=== PATIENT | female | born 1995 | race Caucasian/White ===

== ENCOUNTER 2021-05-27 20:21 | Emergency (ER) | payer MEDICAID, SELFPAY ==
--- NOTE | 2021-05-27 20:55 | ECG_ITS ---
APPROVED REPORT Exam: Resting ECG HR:93 bpm ECG Measurements Heart Rate 93 AXES WA 178 P 49 QRSd 148 QRS 104 QT 388 T 46 QTc 482 Conclusion Sinus rhythm with fusion complexes Right bundle branch block Abnormal ECG Electronically signed by : Frank Simmons MD 05/28/2021 07:30:52
[2021-05-27 21:13] VITALS: BP 132/73; PULSE 86; RESP 18; O2SAT 97; BMI 27.6
[2021-05-27 21:30] VITALS: BP 128/82; PULSE 83; O2SAT 97
[2021-05-27 21:33] LABS: Basophils % 0.1 % (0.1-2.0); Eosinophils # 0.2 K/mm3 (0.0-0.4); Eosinophils % 1.7 % (0.1-12.0); Hemoglobin 13.4 g/dL (12.2-16.2); Lymphocytes # 1.4 K/mm3 (0.7-4.5); Lymphocytes % 11.5 % (10-50); Mean Corpuscular HGB Conc 34.3 g/dL (31.8-35.4); Mean Corpuscular Hemoglobin 31.9 pg (27.0-31.2); Mean Platelet Volume 7.6 fl (7.4-10.4); Monocytes # 0.6 K/mm3 (0.1-1.0); Neutrophils # 9.8 K/mm3 (1.8-7.8); Neutrophils % 81.6 % (37.0-80.0); Platelet Count 245 K/mm3 (142-424); Red Blood Count 4.19 M/mm3 (4.20-5.40); Red Cell Distribution Width 13.5 % (11.5-17.5)
[2021-05-27 21:36] LABS: Chloride 108 mmol/L (98-107); Potassium 3.5 mmoL/L (3.5-5.1); Sodium 137 mmol/L (136-145)
[2021-05-27 21:39] LABS: Anion Gap 13.5 mEq/L (5-15); Blood Urea Nitrogen 5 mg/dl (7-17); Carbon Dioxide 19 mmol/L (22.0-30.0); Creatinine Clearance Estimated 234 mL/min (50-200); Estimated Glomerular Filt Rate 153 ml/min (>60); GFR (African American) 185 ML/MIN (>60)
[2021-05-27 21:40] LABS: Calcium 9.1 mg/dl (8.4-10.2); Glucose 116 mg/dl (74-100)
[2021-05-27 22:00] VITALS: BP 120/78; PULSE 86; O2SAT 97
[2021-05-27 22:30] VITALS: BP 112/68; PULSE 84; O2SAT 98
[2021-05-27 23:00] VITALS: BP 118/70; PULSE 83; O2SAT 96
--- NOTE | 2021-05-27 23:21 | HMH.EDGENADL ---
ED Disposition Clinical Impression: Atypical chest pain Disposition: Home, Self-Care Condition on Discharge: Good Instructions: DI for Atypical Chest Pain Additional Instructions: Additional instructions for CHEST PAIN: Call your lead mason tender and reschedule appointment to be seen as soon as possible. Return immediately if worsening chest pain, vomiting, shortness of breath, fever, coughing of blood. Referrals: Provider,Referral, [Primary Care Provider] - - Critical Care Critical Care Time: No Attestation: On 05/27/21, the high probability of a clinically significant, sudden or life threatening deterioration of the following system(s) required my full and direct attention, intervention and personal management. The time I documented below is in addition to time spent performing reported procedures but includes the following listed in this critical care notation. Medical Decision Making - Ean Inquiry Pt receiving controlled substance: No Vital Signs: 05/27/21 21:13 05/27/21 21:30 05/27/21 22:00 Temperature Temperature Source Pulse Rate 83 86 Pulse Rate [Right Brachial] 86 Respiratory Rate 18 Blood Pressure 128/82 120/78 Blood Pressure [Right Arm] 132/73 Blood Pressure Mean [Right Arm] 92 Blood Pressure Source [Right Arm] Automatic Cuff Blood Pressure Position [Right Arm] Sitting 02 Sat by Pulse Oximetry 97 97 97 Oxygen Delivery Method Room Air Room Air 05/27/21 22:30 05/27/21 23:00 05/28/21 00:45 Temperature 98.0 F Temperature Source Oral Pulse Rate 84 83 89 Pulse Rate [Right Brachial] Respiratory Rate 19 Blood Pressure 112/68 118/70 117/74 Blood Pressure [Right Arm] Blood Pressure Mean [Right Arm] Blood Pressure Source [Right Arm] Blood Pressure Position [Right Arm] 02 Sat by Pulse Oximetry 98 96 Oxygen Delivery Method Room Air Room Air - Lab Data Lab Results 05/27/21 21:05: WBC 12.0 H, RBC 4.19 L, Hgb 13.4, Hct 39.0, MCV 93.0, MCH 31.9 H, MCHC 34.3, RDW 13.5, Plt Count 245, MPV 7.6, Neut % (Auto) 81.6 H, Lymph % (Auto) 11.5, [place] % (Auto) 5.0, Eos % (Auto) 1.7, Baso % (Auto) 0.1, Neut # (Auto) 9.8 H, Lymph # (Auto) 1.4, [place] # (Auto) 0.6, Eos # (Auto) 0.2, Baso # (Auto) 0.0 05/27/21 21:05: Sodium 137, Potassium 3.5, Chloride 108 H, Carbon Dioxide 19 L, Anion Gap 13.5, BUN 5 L, Creatinine 0.50 L, Estimated Creat Clear 234, Estimated GFR 153, Est GFR ( Amer) 185, Glucose 116 H, Calcium 9.1 05/27/21 21:05: Troponin I < 0.01 Result diagrams: 05/27/21 21:05 05/27/21 21:05 - Radiology Data #1 Image(s): Chest Image Reviewed: Yes I have reviewed radiologist's interpretation PROCEDURE INFORMATION: Exam: XR Chest Exam date and time: 05/27/2021 11:36 PM Age: 25 years old Clinical indication: Pain; Chest pressure; Prior surgery; Surgery type: Open heart when PT was 15; Patient HX: ; Additional info: Chest pain TECHNIQUE: Imaging protocol: XR of the chest. Views: 2 views. COMPARISON: No relevant prior studies available. FINDINGS: Lungs: No focal consolidation. Pleural spaces: No pleural effusion. No pneumothorax. Heart/Mediastinum: Unremarkable cardiomediastinal silhouette. Bones/joints: Median sternotomy. IMPRESSION: No focal consolidation. - ECG Data Tracing #1 EKG interpreted by Meir Street MD: Rhythm: sinus Rate: 93 [place]: normal Ectopy: none Conduction: Right bundle branch block ST Segment Changes: none T Wave Changes: none Q Waves: none No evidence of acute ischemia or injury No prior EKGs available for comparison. - Reevaluation(s) Time: 00:43 Reevaluation #1: No distress, appears comfortable. Normal heart rate and pulse oximetry on room air. - ROLAN Score for Non-Stemi Age of Patient: <30 years old Heart Rate: 70-89 bpm Systolic Blood Pressure: 120-139 mmhg Serum Creatinine: 0.40-0.79 mg
--- NOTE | 2021-05-27 23:36 | XR_ITS ---
PROCEDURE INFORMATION: Exam: XR Chest Exam date and time: 05/27/2021 11:36 PM Age: 25 years old Clinical indication: Pain; Chest pressure; Prior surgery; Surgery type: Open heart when PT was 15; Patient HX: ; Additional info: Chest pain TECHNIQUE: Imaging protocol: XR of the chest. Views: 2 views. COMPARISON: No relevant prior studies available. FINDINGS: Lungs: No focal consolidation. Pleural spaces: No pleural effusion. No pneumothorax. Heart/Mediastinum: Unremarkable cardiomediastinal silhouette. Bones/joints: Median sternotomy. IMPRESSION: No focal consolidation.
[2021-05-28 00:09] LABS: Troponin I < 0.01 ng/ml (0.00-0.034)
[2021-05-28 00:45] VITALS: BP 117/74; PULSE 89; RESP 19; TEMP 36.7; O2SAT 98
== END 2021-05-28 00:52 | disposition home or self-care (01) ==
PROVIDERS: Emergency Provider Emergency Medicine
DX: R07.89 Other chest pain (principal); Z3A.19 19 weeks gestation of pregnancy
CPT/HCPCS: 71046; 80048; 84484; 85025; 93005; 99283

== ENCOUNTER → 2021-06-09 14:19 | Outpatient (CLI) | payer MEDICAID, SELFPAY ==
--- NOTE | 2021-06-09 14:20 | US_ITS ---
PROCEDURE: US OB >= 14 WEEKS FETUS CLINICAL INDICATION: OB Complete COMPARISON: No exams were available for comparison FINDINGS: There is a single live fetus in cephalic presentation. Cervix is closed at 4 cm. heart and body motion noted. Anterior grade 1 placenta without previa or abruption. Complete survey performed and was unremarkable on the submitted images as in PACS. No discrete anomalies identified on survey imaging by technologist. Active fetus. Three-vessel cord with satisfactory umbilical cord insertion. 4- chamber heart noted. Survey of brain & ventricles Unremarkable. Face and neck survey unremarkable. Diaphragm and chest views unremarkable. Abdomen: Both kidneys noted and unremarkable. Stomach noted and satisfactory. Spine: Survey of the spine satisfactory with no anomalies identified nor imaged. Both arms and legs noted. Amniotic Fluid: Adequate. Maternal adnexa: No significant findings. Measurements: Average ultrasound age 21weeks 1day. Gestational Age 21weeks 1day Estimated due date by ultrasound age 0210/19/2021. Estimated weight 394g BPD = 21weeks 3days OFD = 21weeks 2days HC = 20weeks 5days AC = 21weeks FL = 21weeks 2days Growth Percentile= 25% Heart Rate = 155bpm Cerebellum = 21weeks Humerus = 21weeks 4days HC/AC is 1.16 CI is 0.79 FL/BPD is 0.7 FL/AC is 0.22 IMPRESSION: Live IUP with an average ultrasound age of 21 weeks 1 day. No obvious anomalies. Please see above for detail Dictated by: Bennie Heredia MD 06/09/2021 16:18 Bennie Heredia MD in [place] 06/09/2021 16:18
== END ==
PROVIDERS: Visit Provider Obstetrics & Gynecology
DX: Z34.90 Encounter for supervision of normal pregnancy, unspecified, unspecified trimester (principal)
CPT/HCPCS: 76805

== ENCOUNTER 2022-01-05 19:58 | Emergency (ER) | payer MEDICAID, SELFPAY ==
[2022-01-05 20:05] VITALS: BP 121/80; PULSE 70; RESP 18; O2SAT 95; BMI 28.0
[2022-01-05 20:23] VITALS: BP 143/95; PULSE 85; RESP 22; TEMP 36.7; O2SAT 96; BMI 28.0
--- NOTE | 2022-01-05 20:39 | HMH.EDUTC ---
[facility] [place]ression: Painful [place] Disposition: Home, Self-Care Condition on Discharge: Good Instructions: DI for Groin Hernia Additional Instructions: Follow up with OBGYN that did your C Section and if heavy menstrual periods continued Return if needed Follow up with your Family Doctor if symptoms return or worsen Straight to ER if any life threatening symptoms Referrals: Provider,Referral, MD [Primary Care Provider] - As needed Forms: Work/School Release Time of Disposition: 20:53 Medical Decision Making - Ean Inquiry Pt receiving controlled substance: No Ean was queried for this patient: No Vital Signs: 01/05/22 20:05 01/05/22 20:23 Temperature 98.1 F Temperature Source Oral Pulse Rate [Right] 70 85 Respiratory Rate 18 22 Blood Pressure [Right Arm] 121/80 143/95 H Blood Pressure Mean [Right Arm] 93 111 02 Sat by Pulse Oximetry 95 96 [facility] [place] - General Stated complaint: c section javier feels like a bubble Time Seen by Provider: 01/05/22 20:39 Mode of Arrival: Ambulatory Source of Information: Patient Limitations: No Limitations Description of Symptoms (Recalled from Triage Doc. by RN): pt had a c/s in [place]. pt states she is having a severe pulsating pain at the R of her incision, RLQ abd pain. pt states it feels like its a bubble pulsating. pt states she is also having excessive vaginal bleeding with many clots. pt states this is not her normal menstrual cycle. HEENT Symptoms (Recalled from RN notes): No Resp Symptoms (Recalled from RN notes): No Skin Symptoms (Recalled from RN notes): No MS Symptoms (Recalled from RN notes): No Functional Status (Recalled from RN notes): wnl - History of Present Illness Provider Complaint: Patient states that she has felt a bubble like area beside her c section scar on her pubic area States that the bubble came out yesterday and hurt for a little while then went away States that she is on her period but this one is a little heavier and she thought she wouldnt have one where they removed her tubes States that this morning that bubble came back so she was unable to go to work but has since went away again and she is no longer having any pain but she wanted to have someone look at her scar to see if it may be trying to open or something - Related Data Home Medications Medication Instructions Recorded Confirmed No Known Home Medications 06/22/21 06/22/21 Allergies Allergy/AdvReac Type Severity Reaction Status Date / Time amoxicillin AdvReac Verified 05/27/21 21:19 clavulanic acid AdvReac Verified 05/27/21 21:19 [From Augmentin] - Worker's Comp Is this a Worker's Comp case?: No [facility] History - Hepatitis A Screen Drug use history?: No High risk sexual behaviors?: No History of sexually transmitted infection?: No Currently employed?: No Childcare worker?: No Do you have indoor plumbing?: Yes Do you have electricity?: Yes Attestation statement:: This patient has been screened for Hepatitis A risk factors. I have reviewed the patient's past medical history: Yes ROS Obtained: Yes All systems reviewed & no additional complaints, Yes Systems reviewed as appropriate & no additional complaints - Constitutional Constitutional: Reports system reviewed and no additional complaints, except as docu, Denies body ache, Denies chills, Denies fever(s) - ENT Ears, Nose, Mouth, and Throat: Reports system reviewed and no additional complaints, except as docu - Cardiovascular Cardiovascular: Reports system reviewed and no additional complaints, except as docu - Respiratory Respiratory: Reports system reviewed and no additional complaints, except as docu - Gastrointestinal Gastrointestingal: Reports: system reviewed and no additional complaints, except as docu, other. Denies: abdominal pain Comments: reports feels like there is a bubble at the end of her scar on her pubic area that is now gone Physical Exam
[2022-01-05 20:59] VITALS: BP 143/95; PULSE 85; RESP 22; TEMP 36.7
== END 2022-01-05 21:00 | disposition home or self-care (01) ==
PROVIDERS: Emergency Provider Nurse Practitioner
DX: R10.31 Right lower quadrant pain (principal); N92.0 Excessive and frequent menstruation with regular cycle; Z88.0 Allergy status to penicillin; Z88.1 Allergy status to other antibiotic agents; Z88.3 Allergy status to other anti-infective agents
CPT/HCPCS: 99212; G0463

== ENCOUNTER 2024-01-17 10:48 | Outpatient (CLI) | payer MEDICAID, SELFPAY | END 2024-01-17 23:59 | disposition home or self-care (01) | LOC: RT 10:50 | PROVIDERS: Visit Provider Physician Assistant | DX: R00.2 Palpitations (principal); R06.09 Other forms of dyspnea; Z98.890 Other specified postprocedural states; R94.31 Abnormal electrocardiogram [ECG] [EKG]; R07.89 Other chest pain; Z86.79 Personal history of other diseases of the circulatory system; Z87.891 Personal history of nicotine dependence; I45.10 Unspecified right bundle-branch block | CPT/HCPCS: 93270 ==

== ENCOUNTER 2024-02-03 07:49 | Outpatient (CLI) | payer MEDICAID, SELFPAY ==
--- NOTE | 2024-02-03 07:51 | CA_ITS ---
APPROVED REPORT EXAM: Comprehensive 2D, Doppler, and color-flow Echocardiogram Card Mounter: Khadijah Sams CRT Ht: 5 ft 9 in Wt: 169lbs BSA: 1.92 BP: 123/72 mmHg Indications: Abnormal ECG, Chest Pain, Shortness of Breath, Palpitations, pt had valve ? replaced at 11 porcine M-Mode Dimensions RVDd 2.63 cm (0.9-2.6) LA Diam 3.05 cm (1.9-4.0) LVDd 4.43 cm (3.5-5.7) LVDs 3.07 cm (3.5-5.7) IVSd 1.61 cm (0.6-1.1) PWd 0.78 cm (0.6-1.1) EF (Teich) 58.50% FS 30.70% EDV (Teich) 89.10 mL TAPSE 1.49 (<1.7) ESV (Teich) 37.00 mL LV Diastology MED A' 8.20 cm/s LAT A' 7.30 cm/s Aortic Valve EVANGELIST Index 1.28 cm2/m2 AoV Peak Job. 118.0 (50-130 cm/s) AO Peak GR. 5.60 mmHg AO Mean GR. 3.50 (<5 mmHg) AO VTI 24.5 (18-25 cm) EVANGELIST (VTI) 2.52 (2.5-4.5 cm2) Pulmonary Valve PV Peak Velocity 157.0 (50-150 cm/s) Tricuspid Valve TR P. Velocity 225.00 cm/s RAP Estimate 10.00 mmHg RVSP 30.20 mmHg Left Ventricle The left ventricle is normal size. The left ventricular systolic function is normal. The left ventricular ejection fraction is within the normal range. There is increased LV wall thickness. There is a septal flattening present, suggestive of RV pressure/volume overload. The left ventricular diastolic function is normal. LVEF is 55%. Right Ventricle The right ventricle is moderately dilated. Right ventricle is mildly to moderately hypokinetic. TAPSE 1.4 cm. TV S' 7 cm/s. Atria The left atrium size is normal. Right atrium is moderately dilated. There is no Doppler evidence of interatrial shunt. Aortic Valve The aortic valve opens well. There is no aortic valvular stenosis. No aortic regurgitation is present. Mitral Valve The mitral valve is normal in structure. No evidence of mitral valve stenosis. Mild mitral regurgitation. Tricuspid Valve The tricuspid valve leaflets are thin and pliable. Mild to moderate tricuspid regurgitation. RVSP is 20-25 mmHg. Pulmonic Valve The pulmonary valve is normal in structure. Mild pulmonic regurgitation. Great Vessels The aortic root is normal in size. The ascending aorta is not well-visualized. IVC is normal in size and collapses >50% with inspiration. Pericardium There is no pericardial effusion. Other Information Study Quality: Fair Conclusion Normal LV systolic function. Moderately dilated RV with mild to moderate reduction in RV function. Septal flattening present, suggestive of RV pressure/volume overload. RA dilation. Mild MR, mild PI. Mild to moderate TR. RVSP 20-25 mmHg. In the setting of RV dilation and RV dysfunction, further evaluation with limited JENNIFER plus bubble study to evaluate for interatrial shunt, as well as outpatient cardiac MRI ([facility] protocol), is recommended. Of note, also, the patient had reported bioprosthetic valve replacement/repair. This TTE does not clearly distinguish which valve. Electronically signed by : Marlin Beckman MD 02/06/2024 22:02:22
== END 2024-02-03 23:59 | disposition home or self-care (01) ==
LOC: RT 07:51
PROVIDERS: PCP Family Medicine Addiction Medicine; Visit Provider Physician Assistant
DX: I20.89 Other forms of angina pectoris (principal); Z95.2 Presence of prosthetic heart valve; Z98.890 Other specified postprocedural states; R94.31 Abnormal electrocardiogram [ECG] [EKG]
CPT/HCPCS: 93017; 93018; 93306

== ENCOUNTER 2024-03-21 09:56 | Outpatient (CLI) | payer MEDICAID, SELFPAY | END 2024-03-21 23:59 | disposition home or self-care (01) | LOC: RAD 09:57 | PROVIDERS: Visit Provider Physician Assistant | DX: R93.89 Abnormal findings on diagnostic imaging of other specified body structures (principal) ==

== ENCOUNTER 2024-05-16 08:16 | Day surgery (SDC) | payer MEDICAID, SELFPAY ==
[2024-05-16] VITALS (7 sets, daily range): BP systolic 107–137; BP diastolic 57–78; PULSE 59–77; RESP 12–18; TEMP 36.1–36.6; O2SAT 93–100; BMI 25.9
--- NOTE | 2024-05-16 08:18 | CA_ITS ---
APPROVED REPORT EXAM: Comprehensive 2D, Doppler, and color-flow Echocardiogram Tungsten Tender: RT Nicolle(R) Ht: 5 ft 9 in Wt: 178lbs BSA: 1.97 BP: 141/91 mmHg Indications: atypical CP, dilated RV, dyspnea, RBBB, hx of valve replacement per patient(unsure of which valve), ex smoker Procedure After obtaining informed consent, patient underwent transesophageal echo in the [facility]. Type of Sedation : MAC Sedation was administered by Jose LaraR.N.AWilver Sedation start time: 9:50 Case end Time: 10:15 Transesophageal probe was inserted and advanced into esophagus without difficulty by Dr. Serge Beckman. The JENNIFER was performed without complications. Throughout the procedure, the blood pressure, pulse oximetry, cardiac rhythm, and rate were monitored. The patient tolerated the procedure without adverse effects. Recovery from conscious sedation was uneventful and vital signs were stable. Left Ventricle The left ventricle is normal size. The left ventricular systolic function is normal. The left ventricular ejection fraction is within the normal range. There is normal left ventricular wall thickness. There is normal LV segmental wall motion. LVEF is 55%. Right Ventricle Right ventricle is mildly dilated. Right ventricle is mildly hypokinetic. Atria Left atrium is mildly dilated. Right atrium is mildly dilated. Small PFO is noted. Saline bubble contrast intravenous injection demonstrates migration of bubbles from the RA into the LA through the PFO. The PFO tunnel length is 0.7 cm, tunnel width is 0.3 cm. Qp:Qs ratio on JENNIFER is 1.3 (LVOT 1.8 cm, RVOT 2.3 cm, LVOT VTI 28 cm, RVOT VTI 22 cm). Aortic Valve The aortic valve is normal in structure. The aortic valve is trileaflet. There is no aortic valvular stenosis. No aortic regurgitation is present. Mitral Valve The mitral valve is normal in structure. No evidence of mitral valve stenosis. Mild mitral regurgitation. Tricuspid Valve The tricuspid valve leaflets are thin and pliable. Mild tricuspid regurgitation. RVSP is 18 mmHg + RA pressure. Pulmonic Valve The pulmonary valve is normal in structure. Trace pulmonic regurgitation. Great Vessels The aortic root is normal in size. The ascending aorta is normal in size. Pericardium There is no pericardial effusion. Other Information Study Quality: Fair Conclusion Normal LV systolic function. Mild RV dilation with mild reduction in RV function. Mild biatrial dilation. Small PFO is noted. Saline bubble contrast intravenous injection demonstrates migration of bubbles from the RA into the LA through the PFO. The PFO tunnel length is 0.7 cm, tunnel width is 0.3 cm. Qp:Qs ratio on JENNIFER is 1.3. Mild MR, mild TR. RVSP 18 mmHg + RA pressure. Of note, the patient is s/p valve repair during childhood (unknown valve). In this JENNIFER, the valves appeared normal overall normal in structure. Further evaluation of outside records for childhood valve surgery and cardiac function/structure is helpful to determine the need for PFO intervention. Further evaluation of QP QS ratio and RV dimensions on cardiac MRI (cardiomyopathy protocol, ASD/PFO protocol) is also recommended. Electronically signed by : Marlin Beckman MD 05/17/2024 12:08:03
--- NOTE | 2024-05-16 08:39 | ECG_ITS ---
APPROVED REPORT Exam: Resting ECG HR:70 bpm ECG Measurements Heart Rate [address] 209 P 50 QRSd 164 QRS 110 QT 422 T 66 QTc 442 Conclusion SINUS RHYTHM WITH SINUS ARRHYTHMIA RIGHT BUNDLE BRANCH BLOCK [120+ ms QRS DURATION, UPRIGHT V1, 40+ ms S IN I/aVL/V4/V5/V6] LEFT POSTERIOR FASCICULAR BLOCK [QRS AXIS > 109, INFERIOR Q] ABNORMAL ECG UNCONFIRMED REPORT Electronically signed by : Frank Simmons MD 05/18/2024 08:48:27
[2024-05-16 08:48] LABS: MANUAL DIFFERENTIAL MANUAL DIFFERENTIAL (MANUAL DIFF)
[2024-05-16 08:54] LABS: Basophils % 0.7 % (0.1-2.0); Eosinophils # 0.3 K/mm3 (0.0-0.4); Hematocrit 45.3 % (37.0-47.0); Hemoglobin 15.1 g/dL (12.2-16.2); Lymphocytes # 1.8 K/mm3 (0.7-4.5); Lymphocytes % 29.7 % (10-50); Mean Corpuscular HGB Conc 33.4 g/dL (31.8-35.4); Mean Corpuscular Hemoglobin 31.2 pg (27.0-31.2); Mean Corpuscular Volume 93.5 fl (81-99); Mean Platelet Volume 7.9 fl (7.4-10.4); Monocytes # 0.4 K/mm3 (0.1-1.0); Monocytes % 6.4 % (1.7-9.3); Neutrophils # 3.5 K/mm3 (1.8-7.8); Platelet Count 239 K/mm3 (142-424); Red Blood Count 4.85 M/mm3 (4.20-5.40); Red Cell Distribution Width 12.8 % (11.5-17.5)
--- NOTE | 2024-05-16 09:01 | P.PNANES_ITS ---
[facility] Disclaimer: The information contained in this section may have been updated after the patient was seen, as this information can be updated by other users. Medical History delivery delivered Surgical History History of open heart surgery Family History Mother Alcoholism Father Alcoholism Social History Smoking Status: Former smoker alcohol intake: current alcohol intake frequency: holidays/special occasions only substance use type: denies use current occupational status: previously employed Travel in the last 8 weeks: None caffeine: Yes [facility] Anesthesia Checklist Patient Identification Patient Identification: Arm Band and Verbal (Name & ) Structural Data Admitted From: Home Planned Operative Procedure/s: JENNIFER Consent for Planned Operative Procedure(s) Verified: Yes Verified Documents: Surgical Consent and History and Physical NPO Status Verified Time NPO: 00:00 Chart Verification Results Verified: CBC and BMP Additional verifications Anesthesia Reactions: No Airway Assessment Mallampati Score:: Class I C-Spine Mobility Assessed: Yes TMJ Mobility Assessed: Yes Dentition: Good Dentition Neurological Assessment Level of Consciousness: Awake Anesthesia Plan Anesthesia Risk discussed: Yes Anesthesia Plan: Verified ASA Class: II Anesthesia Type: MAC
[2024-05-16 09:03] LABS: Chloride 109 mmol/L (98-107); Sodium 137 mmol/L (136-145)
[2024-05-16] MEDS: LACTATED RINGERS 1000ML 1,000 ML 25 ML IV (09:03)
[2024-05-16 09:05] LABS: HCG Qualitative, Serum Negative (Negative)
[2024-05-16 09:06] LABS: Activated Partial Thrombo Time 29.3 seconds (22.8-30.6); Blood Urea Nitrogen 7 mg/dl (7-17); Creatinine Clearance Estimated 153 mL/min (50-200); Estimated Glomerular Filt Rate 101 ml/min (>60); GFR (African American) 122 ML/MIN (>60); INR 1.01 (0.9-1.1); Prothrombin Time 11.3 seconds (10.1-12.5)
[2024-05-16 09:07] LABS: Carbon Dioxide 23 mmol/L (22.0-30.0); Glucose 95 mg/dl (74-100)
[2024-05-16 09:35] LABS: Eosinophils % 4 % (0-3); Lymphocytes % 33 % (10-50); Monocytes % 4 % (2-9); Neutrophils % 58 % (42-76); Platelet Estimate Normal; RBC Morphology Normal; Total Cells Counted 100
== END 2024-05-16 10:40 | disposition home or self-care (01) ==
PROVIDERS: PCP Family Medicine Addiction Medicine; Visit Provider Internal Medicine
DX: R93.1 Abnormal findings on diagnostic imaging of heart and coronary circulation (principal); Z95.2 Presence of prosthetic heart valve; R00.2 Palpitations; Z87.891 Personal history of nicotine dependence; I45.10 Unspecified right bundle-branch block; R94.31 Abnormal electrocardiogram [ECG] [EKG]; R07.89 Other chest pain
CPT/HCPCS: 80048; 84703; 85007; 85014; 85018; 85048; 85049; 85610; 85730; 93005; 93270; 93312; 93319; J2250; J7120

== ENCOUNTER 2024-06-12 10:04 | Outpatient (CLI) | payer MEDICAID, SELFPAY ==
--- NOTE | 2024-06-12 10:10 | MR_ITS ---
APPROVED REPORT Stage Manager: CLINICAL INDICATION PFO, mild RV dysfunction on TTE, history of valve repair (unknown valve) TECHNIQUE Image Acquisition: Cardiac magnetic resonance (CMR) was performed on Siemens Espree MRI 1.5T scanner. Software platform sequences were performed using the Siemens NeurogesXo MR B19 platform. A set of three-plane, low-resolution, large [id number] localizers were initially acquired. Then axial, coronal, sagittal TrueFISP, as well as axial HASTE images, were obtained. These were followed by gated TrueFISP breathold cinematic sequences obtained in the short axis with 8 mm slices and 2 mm gaps, 2-chamber (vertical long axis), 3-chamber, 4-chamber (horizontal long axis). A bolus of contrast was injected intravenously with first-pass sequences obtained in the short axis and four-chamber planes. After approximately 10 minutes, a TI nail mill worker sequence was performed to determine the optimal TI time. Using the optimized TI time, delayed contrast enhancement segmented inversion???recovery TurboFLASH sequences were obtained in the short axis, 2-chamber, 3-chamber, and 4-chamber projections. 2D-velocity phase mapping was performed. Functional parameters were calculated by offline analysis on an independent workstation ([employer] Platform, [employer]). Contrast: ProHance??? (Gadoteridol) FINDINGS MORPHOLOGY AND FUNCTION Left ventricle: The left ventricle is normal in size. The indexed left ventricular end-diastolic volume (LVEDVi) is 79 ml/m2 (reference range 57-105 ml/m2 in males, 56-96 ml/m2 in females). Normal left ventricular systolic function is present. There is normal left ventricular wall thickness. There mild that although I appreciate the call d at 59.2% (reference range 57-77%). Right ventricle: The right ventricle is mildly dilated. The indexed right ventricular end-diastolic volume (RVEDVi) is 105 ml/m2 (reference range 61-121 ml/m2 in males, 48-102 ml/m2 in females). There is mild reduction in right ventricular systolic function. RVEF is calculated at 42.3% (reference range 52-72% in males, 51-71% in females). Atria: The left atrium is normal in size. The maximum indexed left atrial volume is 35 ml/m2 (reference range 26-52 ml/m2 in males, 27-53 ml/m2 in females). The right atrium is mildly dilated.. The maximum indexed right atrial volume is 47 ml/m2 (reference range 18-40 ml/m2). The interatrial septum bows to the left, suggestive of increased right atrial pressure. Aorta: The diameter of the aortic annulus is normal, measuring 20 mm (coronal view reference range 21-30 mm in males, 19-27 mm in females). The diameter of the aortic sinus is normal, measuring 27 mm (coronal view reference range 25-42 mm in males, 24-36 mm in females). The diameter of the sinotubular junction is normal, measuring 20 mm (coronal view reference range 18-32 mm in males, 18-28 mm in females). The diameters of the ascending and descending thoracic aorta are normal. Main pulmonary artery: The main pulmonary artery diameter is normal. Pericardium: The pericardial thickness is normal. The pericardial thickness measures 1.7 mm (normal < 4.0 mm). There is no pericardial effusion. VALVES The septal leaflet of the tricuspid valve appears tethered. There is mild tricuspid regurgitation present. Systolic anterior motion of the mitral valve is not visualized. Ratio of pulmonary to systemic flow, Qp:Qs ratio = 1.15 (normal < or = 1.2, hemodynamically significant shunt > 1.5), demonstrating no evidence of hemodynamically significant shunt. TISSUE CHARACTERIZATION Resting Perfusion: Normal myocardial blood flow at rest. No evidence of resting hypoperfusion. Myocardial Fibrosis and/or edema: Normal gadolinium kinetics are present. No evidence of late gadolinium enhancement is noted, consistent with absence of myocardial scarring, infarction, or necrosis. T2-weighted imaging demonstrates no evidence of myocardial edema or inflammation. OTHER No other significant findings are noted. However, this exam is focused on the cardiac structure and function. IMPRESSION Normal LV size with normal LV systolic function. LVEDVi= 79 ml/m2 and LVEF= 59.2%. Septal flattening is present, suggestive of right-sided volume/pressure overload. Mildly dilated RV with mild reduction in RV function. RVEDVi= 105 ml/m2 and RVEF= 42.3%. RA dilation. The septal leaflet of the tricuspid valve appears tethered (may be due to prior surgical intervention). There is mild tricuspid regurgitation present. No CMR evidence of myocardial scarring, infarction, or necrosis. No evidence of myocardial edema or inflammation. Perfusion analysis demonstrates normal blood flow at rest with no evidence of resting hypoperfusion. Ratio of pulmonary to systemic flow, Qp:Qs ratio = 1.15 demonstrating no evidence of hemodynamically significant shunt. This CMR demonstrates normal LV systolic function with mild RV dysfunction. The septal leaflet of the tricuspid valve appears tethered (may be due to prior surgical intervention) with associated mild TR. In the setting of known PFO, but also normal Qp/Qs ratio, evaluation for additional etiologies of RV dysfunction is suggested prior to proceeding with PFO closure. COMPARISON None CRITICAL RESULT None COMMUNICATION Per this written report The findings of this cardiac MR were reviewed, reported, and signed by Serge Beckman MD (Refinery Operator Crude Unit). Conclusion Electronically signed by : Marlin Beckman MD 07/02/2024 11:43:03
[2024-06-12] MEDS: GADOTERIDOL INJ 20ML SYRINGE 17 ML IV (11:55)
[2024-06-12] MEDS: 0.9 % SODIUM CHLORIDE 50 ML VIAL 25 ML IV (11:55)
[2024-06-12] MEDS: SODIUM CHLORIDE 0.9% 10ML SYR (RAD ONLY) 10 ML IV (11:55)
== END 2024-06-12 23:59 | disposition home or self-care (01) ==
LOC: RAD 10:05
PROVIDERS: Visit Provider Physician Assistant
DX: R93.1 Abnormal findings on diagnostic imaging of heart and coronary circulation (principal); Q21.12 Patent foramen ovale; Z95.4 Presence of other heart-valve replacement
CPT/HCPCS: 75561; A9576

== ENCOUNTER 2024-07-05 14:33 | Outpatient (CLI) | payer MEDICAID, SELFPAY ==
[2024-07-05 15:18] LABS: Anion Gap 12.5 mEq/L (5-15); Blood Urea Nitrogen 6 mg/dl (7-17); Calcium 9.4 mg/dl (8.4-10.2); Carbon Dioxide 24 mmol/L (22.0-30.0); Chloride 106 mmol/L (98-107); Estimated Glomerular Filt Rate 121 ml/min (>60); GFR (African American) 146 ML/MIN (>60); Glucose 92 mg/dl (74-100); Potassium 4.5 mmoL/L (3.5-5.1); Sodium 138 mmol/L (136-145)
== END 2024-07-05 23:59 | disposition home or self-care (01) ==
LOC: LAB 14:34
PROVIDERS: PCP Family Medicine Addiction Medicine; Visit Provider Internal Medicine
DX: Q21.12 Patent foramen ovale (principal); R93.1 Abnormal findings on diagnostic imaging of heart and coronary circulation; Z95.2 Presence of prosthetic heart valve; R00.2 Palpitations; R06.09 Other forms of dyspnea; Z98.890 Other specified postprocedural states; Z87.891 Personal history of nicotine dependence; I45.10 Unspecified right bundle-branch block; R94.31 Abnormal electrocardiogram [ECG] [EKG]; R07.89 Other chest pain
CPT/HCPCS: 36415; 80048

== ENCOUNTER 2024-07-24 14:16 | Outpatient (CLI) | payer MEDICAID, SELFPAY ==
[2024-07-24 15:02] LABS: Basophils # 0.1 K/mm3 (0-0.2); Basophils % 0.8 % (0.1-2.0); Eosinophils # 0.2 K/mm3 (0.0-0.4); Eosinophils % 2.1 % (0.1-12.0); Hematocrit 43.8 % (37.0-47.0); Hemoglobin 14.8 g/dL (12.2-16.2); Lymphocytes # 2.1 K/mm3 (0.7-4.5); Lymphocytes % 23.2 % (10-50); Mean Corpuscular HGB Conc 33.8 g/dL (31.8-35.4); Mean Corpuscular Hemoglobin 30.8 pg (27.0-31.2); Mean Corpuscular Volume 91.1 fl (81-99); Mean Platelet Volume 7.8 fl (7.4-10.4); Monocytes # 0.6 K/mm3 (0.1-1.0); Monocytes % 6.8 % (1.7-9.3); Neutrophils # 5.9 K/mm3 (1.8-7.8); Neutrophils % 67.1 % (37.0-80.0); Platelet Count 311 K/mm3 (142-424); Red Blood Count 4.81 M/mm3 (4.20-5.40); Red Cell Distribution Width 12.7 % (11.5-17.5); White Blood Count 8.8 K/mm3 (4.8-10.8)
[2024-07-24 15:08] LABS: Activated Partial Thrombo Time 27.8 seconds (22.8-30.6); INR 0.95 (0.9-1.1); Prothrombin Time 10.7 seconds (10.1-12.5)
[2024-07-24 15:10] LABS: Anion Gap 13.4 mEq/L (5-15); Blood Urea Nitrogen 10 mg/dl (7-17); Calcium 8.7 mg/dl (8.4-10.2); Carbon Dioxide 26 mmol/L (22.0-30.0); Chloride 102 mmol/L (98-107); Estimated Glomerular Filt Rate 87 ml/min (>60); GFR (African American) 105 ML/MIN (>60); Glucose 79 mg/dl (74-100); Potassium 4.4 mmoL/L (3.5-5.1); Sodium 137 mmol/L (136-145)
== END 2024-07-24 23:59 | disposition home or self-care (01) ==
LOC: LAB 14:17
PROVIDERS: PCP Family Medicine Addiction Medicine; Visit Provider Internal Medicine
DX: R07.89 Other chest pain (principal); R94.31 Abnormal electrocardiogram [ECG] [EKG]; Z87.891 Personal history of nicotine dependence; R06.09 Other forms of dyspnea
CPT/HCPCS: 36415; 80048; 85025; 85610; 85730

== ENCOUNTER → 2024-08-02 10:36 | Outpatient (CLI) | payer MEDICAID, SELFPAY | LOC: SL 10:37 | PROVIDERS: PCP Internal Medicine; Visit Provider Internal Medicine | DX: R40.0 Somnolence (principal); G47.9 Sleep disorder, unspecified | CPT/HCPCS: G0399 ==

== ENCOUNTER 2024-09-11 13:10 | Emergency (ER) | payer MEDICAID, SELFPAY ==
[2024-09-11 14:25] VITALS: BP 140/88; PULSE 89; RESP 19; TEMP 36.9; O2SAT 96; BMI 28.9
--- NOTE | 2024-09-11 15:03 | ED_ITS ---
Discharge Plan Disposition Patient Disposition: Home, Self-Care Condition: Good Prescriptions Prescriptions: New doxycycline hyclate 100 mg capsule 100 mg PO BID Qty: 20 0RF guaifenesin [Mucinex] 1,200 mg tablet extended release 12hr 1,200 mg PO Q12H PRN (Reason: congestion) Qty: 20 0RF No Action propranolol 40 mg tablet 40 mg PO DAILY buspirone 10 mg tablet 10 mg PO DAILY furosemide 20 mg tablet 20 mg PO DAILY fluoxetine 20 mg capsule 20 mg PO DAILY Referrals Follow up/Referrals: Kathy Saha APRN [Primary Care Provider] - See instructions Activity Restrictions/Add. Instructions Additional Instructions/Restrictions: *Monitor Temp, Over the counter Motrin or Tylenol as directed/as needed Tylenol every 4 hours and Motrin every 6 hours (as long as your family doctor has told you that you can take it) for fever or pain. and straight to ER if unable to lower temp less than 101.0 after medication given *Warm salt water gargles may help to soothe the throat *Throat Lozenges? *Warm fluids like tea with honey may help to soothe the throat? *Sleep elevated *Humidifier/Vaporizer Follow up IMMEDIATELY for new or worsening symptoms or no Noticeable improvement over the next 48-72 hours. 911 for difficulty breathing or swallowing Clinical Impressions Clinical Impression: Bronchitis Sinusitis Qualifiers: Sinusitis location: unspecified location Chronicity: unspecified Qualified Code(s): J32.9 - Chronic sinusitis, unspecified Instructions Patient Instructions: DI for Sinusitis, Acute Bronchitis Print Language Print Language: Thai Discharge ED Provider: Estella Benavidez [facility] [place] General Stated complaint: congestion, cough, soa Mode of Arrival: Ambulatory Source of Information: Patient Limitations: No Limitations Time Seen by Provider: 09/11/24 15:04 Description of Symptoms (Recalled from Triage Doc. by RN): PATIENT C/O COUGH AND CHEST CONGESTION FOR APPROX 1 WEEK HEENT Symptoms (Recalled from RN notes): No Resp Symptoms (Recalled from RN notes): Yes Skin Symptoms (Recalled from RN notes): No MS Symptoms (Recalled from RN notes): No Functional Status (Recalled from RN notes): WNL History of Present Illness Provider Complaint: Patient states that she has been having sinus congestion and pressure along with chest congestion and cough for about a week that has not got any better Denies known fevers Related Data Home Medications ?Medication ?Instructions ?Recorded ?Confirmed buspirone 10 mg tablet 10 mg PO DAILY 09/11/24 09/11/24 fluoxetine 20 mg capsule 20 mg PO DAILY 09/11/24 09/11/24 furosemide 20 mg tablet 20 mg PO DAILY 09/11/24 09/11/24 propranolol 40 mg tablet 40 mg PO DAILY 09/11/24 09/11/24 Previous Rx's ?Medication ?Instructions ?Recorded doxycycline hyclate 100 mg capsule 100 mg PO BID #20 caps 09/11/24 guaifenesin 1,200 mg tablet, 1,200 mg PO Q12H PRN congestion 09/11/24 extended release 12 hr (Mucinex) #20 tabs Allergies Allergy/AdvReac Type Severity Reaction Status Date / Time Penicillins Allergy Verified 07/24/24 13:39 amoxicillin AdvReac Verified 07/24/24 13:39 clavulanic acid (From AdvReac Verified 07/24/24 13:39 Augmentin) Worker's Comp Is this a Worker's Comp case?: No [facility] Disclaimer: The information contained in this section may have been updated after the patient was seen, as this information can be updated by other users. Medical History delivery delivered Surgical History History of open heart surgery Family History Mother Alcoholism Father Alcoholism Social History Smoking Status: Former smoker alcohol intake: current alcohol intake frequency: holidays/special occasions only substance use type: denies use current occupational status: previously employed Travel in the last 8 weeks: None caffeine: Yes Have you lived/traveled outside US in past 30 days?: No Contact w/someone who lives/traveled outside US past 30 days?: No Exposure to someone with infectious disease in past 14 days?: No Do you have a fever (greater than 100.4 F or 38 C)?: No Have you tested positive for COVID-19: No Exposed to someone with COVID-19 in past 14 days?: No Do you have a sore throat?: No Do you have a cough?: No Do you have any weakness?: No Do you have any diarrhea?: No Are you experiencing any unusual bleeding?: No Do you have any muscle aches/pain?: No Do you have any abdominal pain?: No Are you experiencing loss of taste or smell?: No ROS Obtained: Yes All systems reviewed & no additional complaints except as documented and Yes Systems reviewed as appropriate & no additional complaints except as documented Constitutional Constitutional: Reports system reviewed and no additional complaints, except as documented and Reports as per HPI ENT Ears, Nose, Mouth, and Throat: Reports system reviewed and no additional complaints, except as documented, Reports as per HPI, Reports sinus pain and Reports sinus pressure Cardiovascular Cardiovascular: Reports system reviewed and no additional complaints, except as documented and Reports as per HPI Respiratory Respiratory: Reports system reviewed and no additional complaints, except as documented, Reports as per HPI, Denies shortness of breath, Reports chest congestion and Reports cough Gastrointestinal Gastrointestingal: Reports system reviewed and no additional complaints, except as documented and as per HPI Genitourinary Female Genitourinary: Reports system reviewed and no additional complaints, except as documented and Reports as per HPI Physical Exam General General appearance: alert and in no apparent distress ENT ENT exam: Present mucous membranes moist Expanded ENT Exam Nose exam: Present sinus tenderness Throat exam: Present other (PND noted) Respiratory Respiratory exam: Present normal lung sounds bilaterally; Absent respiratory distress or wheezes Cardiovascular Cardiovascular exam: Present regular rate, normal rhythm and normal heart sounds Neurological Exam Neurological exam: Present alert, oriented X3 and normal gait Medical Decision Making Medical Records Screening: Per USPSTF and CDC recommendations, given the prevalence of disease in our region, it is our hospital?s policy to screen for HIV and viral Hepatitis for all patients aged 18 and over and those with ongoing risk factors. Ean Inquiry Pt receiving controlled substance: No Ean was queried for this patient: No Vital Signs: 09/11/24 14:25 Temperature 98.4 F Temperature Source Oral Pulse Rate [Left Brachial] 89 Respiratory Rate 19 Blood Pressure [Left Arm] 140/88 Blood Pressure Mean [Left Arm] 105 Blood Pressure Source [Left Arm] Automatic Cuff Blood Pressure Position [Left Arm] Sitting 02 Sat by Pulse Oximetry 96 Oxygen Delivery Method Room Air
[2024-09-11 15:15] VITALS: BP 140/88; PULSE 89; RESP 19; TEMP 36.9; O2SAT 96
== END 2024-09-11 15:23 | disposition home or self-care (01) ==
PROVIDERS: Emergency Provider Nurse Practitioner; PCP Family Medicine Addiction Medicine
DX: J20.9 Acute bronchitis, unspecified (principal); J32.9 Chronic sinusitis, unspecified; R09.89 Other specified symptoms and signs involving the circulatory and respiratory systems; R05.9 Cough, unspecified
CPT/HCPCS: 99212; G0381

== ENCOUNTER 2024-10-04 08:54 | Outpatient (CLI) | payer MEDICAID, SELFPAY ==
--- NOTE | 2024-10-04 08:56 | CA_ITS ---
APPROVED REPORT EXAM: Comprehensive 2D, Doppler, and color-flow Echocardiogram Switch Tender: Khadijah Sams CRT Ht: 5 ft 9 in Wt: 196lbs BSA: 2.05 BP: 110/70 mmHg Indications: Shortness of Breath, Palpitations, pt had a valve ??? replaced at 13 yrs old (suspected TV repair, but unconfirmed) PFO tunnel 0.7cm x 0.3cm seen on JENNIFER 05/16/24 2D Dimensions Left Atrium 3.39 cm LVEF (Vail's) 51.60 % LVOT 1.97 cm (M/F) 1.5-2.5 LV Volume 104.20 mL LA Volume 40.10 mL LA Volume Index 19.60 mL/m2 (M/F) 16-34 EF AP4 54.80 % EF AP2 43.1 % EF BP 51.6 % GL Strain -13.1 % M-Mode Dimensions RVDd 2.38 cm (0.9-2.6) LVDd 4.43 cm (3.5-5.7) Ao Diam 3.18 cm (2.0-3.7) LVDs 3.20 cm (3.5-5.7) IVSd 1.70 cm (0.6-1.1) PWd 0.94 cm (0.6-1.1) EF (Teich) 54.00% FS 27.80% EDV (Teich) 89.10 mL TAPSE 1.45 (<1.7) ESV (Teich) 41.00 mL LV Diastology E Decel Time 169 (160-240 msec) E/A Ratio 1.37 MED E' 14.3 (>= 7 cm/sec) MED A' 8.90 cm/s E'/MED E' Ratio 4.80 (<= 14) LAT E' 12.2 (>= 10 cm/sec) LAT A' 8.60 cm/s E/LAT E' Ratio 5.62 (<= 14) Aortic Valve AoV Peak Job. 117.0 (50-130 cm/s) AO Peak GR. 5.60 mmHg Mitral Valve MV E Max Job. 69.0 (40-130 cm/s) MV A Velocity 50.0 (40-130 cm/s) E/A Ratio 1.37 MV Decel. Time 169 (160-240 ms) Tricuspid Valve TR P. Velocity 229.00 cm/s RAP Estimate 10.00 mmHg RVSP 31.00 mmHg Left Ventricle The left ventricle is normal size. The left ventricular systolic function is normal. The left ventricular ejection fraction is within the normal range. There is increased LV wall thickness. There is normal LV segmental wall motion. The left ventricular diastolic function is normal. LVEF is 55%. Right Ventricle Right ventricle is moderately dilated. Right ventricle is moderately hypokinetic. TAPSE 1.4 cm. Atria The left atrium size is normal. The right atrium is moderately dilated. Known presence of PFO. In this study, color Doppler does not clearly demonstrate the interatrial shunt. Aortic Valve The aortic valve opens well. There is no aortic valvular stenosis. No aortic regurgitation. Mitral Valve The mitral valve is normal in structure. No evidence of mitral valve stenosis. Mild mitral regurgitation. Tricuspid Valve The tricuspid valve leaflets are mildly thickened (suspected, but unconfirmed, childhood TV repair) Mild to moderate tricuspid regurgitation. RVSP is 20-25 mmHg. Pulmonic Valve The pulmonary valve is normal in structure. Mild pulmonic regurgitation. Great Vessels The aortic root is normal in size. The ascending aorta is normal in size. IVC is normal in size and collapses >50% with inspiration. Pericardium There is no pericardial effusion. Other Information Study Quality: Fair Conclusion Normal LV systolic function. Moderate RV dilation with moderate reduction in RV function. RA dilation. Mild to moderate TR. Mild MR, mild PI. Known presence of PFO. In the study, color Doppler does not clearly demonstrate the interatrial shunt. Compared to prior study from 02/03/2024, there is no significant change. Electronically signed by : Marlin Beckman MD 10/12/2024 00:04:10
== END 2024-10-04 23:59 | disposition home or self-care (01) ==
LOC: RT 08:55
PROVIDERS: PCP Nurse Practitioner Family; Visit Provider Internal Medicine
DX: I51.7 Cardiomegaly (principal); R07.89 Other chest pain; R06.09 Other forms of dyspnea
CPT/HCPCS: 93306

== ENCOUNTER 2024-12-05 12:06 | Outpatient (CLI) | payer MEDICAID, SELFPAY ==
[2024-12-05 12:44] LABS: Basophils % 0.4 % (0.1-2.0); Eosinophils # 0.1 K/mm3 (0.0-0.4); Eosinophils % 1.9 % (0.1-12.0); Hematocrit 42.8 % (37.0-47.0); Hemoglobin 14.9 g/dL (12.2-16.2); Lymphocytes # 1.3 K/mm3 (0.7-4.5); Lymphocytes % 18.7 % (10-50); Mean Corpuscular HGB Conc 34.8 g/dL (31.8-35.4); Mean Corpuscular Hemoglobin 30.8 pg (27.0-31.2); Mean Corpuscular Volume 88.6 fl (81-99); Monocytes # 0.4 K/mm3 (0.1-1.0); Monocytes % 6.1 % (1.7-9.3); Neutrophils % 72.6 % (37.0-80.0); Platelet Count 265 K/mm3 (142-424); Red Blood Count 4.83 M/mm3 (4.20-5.40); Red Cell Distribution Width 11.1 % (11.5-17.5); White Blood Count 6.8 K/mm3 (4.8-10.8)
[2024-12-05 13:38] LABS: Alanine Aminotransferase 20 U/L (12-78); Albumin Level 4.8 g/dl (3.5-5.0); Albumin/Globulin Ratio 1.8 (1.1-1.8); Alkaline Phosphatase 53 U/L (38-126); Anion Gap 16.5 mEq/L (5-15); Aspartate Amino Transferase 28 U/L (14-36); Bilirubin,Total 1.2 mg/dl (0.2-1.3); Blood Urea Nitrogen 8 mg/dl (7-17); Calcium 9.8 mg/dl (8.4-10.2); Carbon Dioxide 22 mmol/L (22.0-30.0); Chloride 104 mmol/L (98-107); Chol/HDL Ratio 4.2 (1-3.5); Cholesterol 176 mg/dl (140-200); Estimated Glomerular Filt Rate 100 ml/min (>60); GFR (African American) 121 ML/MIN (>60); Globulin 2.7 g/dL (1.3-3.2); Glucose 97 mg/dl (74-100); HDL Cholesterol 42 mg/dl (40-60); Potassium 4.5 mmoL/L (3.5-5.1); Sodium 138 mmol/L (136-145); Total Protein,Serum 7.5 g/dl (6.3-8.2); Triglycerides 86 mg/dl (30-150); VLDL Cholesterol 17 mg/dL (0-40)
[2024-12-05 13:49] LABS: Direct LDL Cholesterol 99.52 mg/dL (100-129); Free T4 (Free Thyroxine) 1.27 ng/dl (0.78-2.19)
[2024-12-05 13:53] LABS: 25-OH Vitamin D, Total 23.4 ng/mL (30-100)
[2024-12-05 14:02] LABS: Thyroid Stimulating Hormone 0.89 uIU/mL (0.465-4.68)
[2024-12-05 14:20] LABS: Vitamin B12 451 pg/mL (239-931)
[2024-12-05 15:59] LABS: Ferritin 27.3 ng/ml (6.24-137)
[2024-12-06 14:12] LABS: Triiodothyronine (T3) Total 125 ng/dL (71-180)
== END 2024-12-05 23:59 | disposition home or self-care (01) ==
LOC: LAB 12:07
PROVIDERS: Visit Provider Family Medicine Addiction Medicine
DX: Z01.89 Encounter for other specified special examinations (principal); Z79.899 Other long term (current) drug therapy
CPT/HCPCS: 36415; 80053; 80061; 82306; 82607; 82728; 82746; 83036; 84439; 84443; 84480; 85025

== ENCOUNTER 2024-12-23 21:05 | Emergency (ER) | payer MEDICAID, SELFPAY ==
--- NOTE | 2024-12-23 21:00 | ECG_ITS ---
APPROVED REPORT Exam: Resting ECG HR:69 bpm ECG Measurements Heart Rate 69 AXES WI 200 P 55 QRSd 176 QRS 108 QT 448 T 71 QTc 468 Conclusion Sinus rhythm Right axis deviation Right bundle branch block Electronically signed by : VELMA PALACIOS, 12/27/2024 15:26:07
[2024-12-23 21:10] VITALS: BP 152/93; PULSE 69; RESP 18; TEMP 36.9; O2SAT 97; BMI 28.8
--- NOTE | 2024-12-23 21:11 | XR_ITS ---
PROCEDURE INFORMATION: Exam: XR Chest Exam date and time: 12/23/2024 9:34 PM Age: 29 years old Clinical indication: Pain; Other: Cp, palpitations TECHNIQUE: Imaging protocol: Radiologic exam of the chest. Views: 1 view. COMPARISON: CR XR CHEST 2V 05/27/2021 11:36 PM FINDINGS: Tubes, catheters and devices: Multiple sternal cerclage wires overlie the sternum. Lungs: Unremarkable. No consolidation. Pleural spaces: Unremarkable. No pleural effusion. No pneumothorax. Heart/Mediastinum: Unremarkable. No cardiomegaly. Bones/joints: Unremarkable. IMPRESSION: No acute findings.
[2024-12-23 21:18] VITALS: PULSE 64; RESP 18; O2SAT 98
[2024-12-23 21:27] LABS: Basophils % 0.4 % (0.1-2.0); Eosinophils # 0.2 K/mm3 (0.0-0.4); Eosinophils % 2.2 % (0.1-12.0); Hematocrit 42.4 % (37.0-47.0); Hemoglobin 14.8 g/dL (12.2-16.2); Lymphocytes # 2.5 K/mm3 (0.7-4.5); Mean Corpuscular HGB Conc 34.9 g/dL (31.8-35.4); Mean Corpuscular Hemoglobin 30.5 pg (27.0-31.2); Mean Corpuscular Volume 87.2 fl (81-99); Mean Platelet Volume 10.4 fl (7.4-10.4); Monocytes # 0.9 K/mm3 (0.1-1.0); Monocytes % 8.9 % (1.7-9.3); Neutrophils # 6.7 K/mm3 (1.8-7.8); Neutrophils % 64.3 % (37.0-80.0); Nucleated Red Blood Cells # 0 10^3/uL; Nucleated Red Blood Cells % 0 %; Platelet Count 255 K/mm3 (142-424); Red Blood Count 4.86 M/mm3 (4.20-5.40); Red Cell Distribution Width 11.2 % (11.5-17.5); Red Cell Distribution Width-SD 35.8 fL; White Blood Count 10.5 K/mm3 (4.8-10.8)
[2024-12-23 21:30] VITALS: BP 133/81; PULSE 60; RESP 14; O2SAT 97
[2024-12-23 21:30] LABS: Albumin Level 4.7 g/dl (3.5-5.0); Chloride 104 mmol/L (98-107); Potassium 4.2 mmoL/L (3.5-5.1); Sodium 137 mmol/L (136-145)
[2024-12-23 21:33] LABS: Alanine Aminotransferase 22 U/L (12-78); Albumin/Globulin Ratio 1.4 (1.1-1.8); Alkaline Phosphatase 42 U/L (38-126); Anion Gap 16.2 mEq/L (5-15); Aspartate Amino Transferase 44 U/L (14-36); Bilirubin,Total 1.2 mg/dl (0.2-1.3); Blood Urea Nitrogen 12 mg/dl (7-17); Carbon Dioxide 21 mmol/L (22.0-30.0); Creatinine Clearance Estimated 144 mL/min (50-200); Estimated Glomerular Filt Rate 86 ml/min (>60); GFR (African American) 104 ML/MIN (>60); Globulin 3.4 g/dL (1.3-3.2); Lipase 70 U/L (23-300); Total Protein,Serum 8.1 g/dl (6.3-8.2)
[2024-12-23 21:34] LABS: Calcium 8.8 mg/dl (8.4-10.2); Glucose 91 mg/dl (74-100)
[2024-12-23 21:35] LABS: Activated Partial Thrombo Time 27.9 seconds (22.8-30.6)
[2024-12-23 21:37] LABS: Prothrombin Time 11.2 seconds (10.1-12.5)
--- NOTE | 2024-12-23 21:38 | HMH.EDGENADL ---
Discharge Plan Disposition Patient Disposition: Home, Self-Care Chief Complaint: Chest Pain Prescriptions Prescriptions: No Action fluoxetine 10 mg capsule 10 mg PO DAILY budesonide-formoterol [Symbicort] 160-4.5 mcg/actuation HFA aerosol inhaler 2 puff inhalation BID 90 Days Qty: 10.2 2RF fluticasone propionate [Flonase Allergy Relief] 50 mcg/actuation spray,suspension 2 spray intranasal DAILY 90 Days Qty: 16 2RF Rx Instructions: administer into each nostril propranolol 40 mg tablet See Rx Instructions .ROUTE .COMPLEX Qty: 60 5RF Dose Instruction: TAKE 1 TABLET ORALLY TWICE A DAY Rx Instructions: TAKE 1 TABLET ORALLY TWICE A DAY buspirone 10 mg tablet 10 mg PO DAILY furosemide 20 mg tablet 20 mg PO DAILY doxycycline hyclate 100 mg capsule 100 mg PO BID Qty: 20 0RF guaifenesin [Mucinex] 1,200 mg tablet extended release 12hr 1,200 mg PO Q12H PRN (Reason: congestion) Qty: 20 0RF Referrals Follow up/Referrals: Provider,Referral, MD [Primary Care Provider] - See instructions Activity Restrictions/Add. Instructions Additional Instructions/Restrictions: Call your family doctor to establish care for this visit to the emergency department and schedule follow-up within 48 hours to ensure improvement. If you have any worsening of your condition or any other concerning signs or symptoms, return to the emergency department or your primary care doctor for further evaluation. Also call your digital media representative and let them know you are here today, they may want to schedule a closer follow-up appointment for further evaluation. Clinical Impressions Clinical Impression: Chest pain Print Language Print Language: Sinhala Discharge ED Provider: Sukumar Hammond General Adult HPI General Chief complaint: Chest Pain Stated complaint: Chest pain Time Seen by Provider: 12/23/24 21:09 Mode of Arrival: Ambulatory Source of Information: Patient Description of Symptoms (Recalled from ER Triage Doc. by RN): Pt to ED with c/o 7/10 throbbing left chest pain that radiates to left arm since 0100. Pt reports she was laying in bed when pain started. History of Present Illness HPI narrative: Please note that above description of symptoms, in this electronic medical record under categorization of recalled from ER triage doctor by RN are reflective of an initial nursing assessment, however, is not reflective of my full history and physical exam that was personally taken and clarified. Consequentially, this preceding description of symptoms, which may include the patient's categorized chief complaint in the EMR, do not reflect my personal clinical impression, and the ultimate description of history of present illness and patient stated complaints should be deferred to this section of the note. Unless stated otherwise or congruent with this section of the note, additional signs, symptoms, or incongruence should be interpreted as inaccurate with my clinical impression. Related Data Home Medications ?Medication ?Instructions ?Recorded ?Confirmed buspirone 10 mg tablet 10 mg PO DAILY 09/11/24 12/12/24 furosemide 20 mg tablet 20 mg PO DAILY 09/11/24 12/12/24 fluoxetine 10 mg capsule 10 mg PO DAILY 10/10/24 12/12/24 Previous Rx's ?Medication ?Instructions ?Recorded doxycycline hyclate 100 mg capsule 100 mg PO BID #20 caps 09/11/24 guaifenesin 1,200 mg tablet, 1,200 mg PO Q12H PRN congestion 09/11/24 extended release 12 hr (Mucinex) #20 tabs budesonide-formoterol HFA 160 2 puff inhalation BID 90 days 12/12/24 mcg-4.5 mcg/actuation aerosol #10.2 grams inhaler (Symbicort) fluticasone propionate 50 2 spray intranasal DAILY 90 days 12/12/24 mcg/actuation nasal #16 grams spray,suspension (Flonase Allergy Relief) propranolol 40 mg tablet See Rx Instructions .Route 12/17/24 .COMPLEX #60 tabs Allergies Allergy/AdvReac Type Severity Reaction Status Date / Time Penicillins Allergy Verified 12/12/24 14:07 amoxicillin AdvReac Verified 12/12/24 14:07 clavulanic acid (From AdvReac Verified 12/12/24 14:07 Augmentin) [facility] Disclaimer: The information contained in this section may have been updated after the patient was seen, as this information can be updated by other users. Medical History (Updated 12/23/24 @ 22:27 by Sukumar Hammond MD) Allergic rhinitis Asthma Dyspnea on exertion delivery delivered Surgical History History of open heart surgery Family History Mother Alcoholism Father Alcoholism Social History Smoking Status: Current every day smoker alcohol intake: current alcohol intake frequency: holidays/special occasions only substance use type: denies use current occupational status: previously employed Travel in the last 8 weeks: None caffeine: Yes Have you lived/traveled outside US in past 30 days?: No Contact w/someone who lives/traveled outside US past 30 days?: No Exposure to someone with infectious disease in past 14 days?: No Do you have a fever (greater than 100.4 F or 38 C)?: No Have you tested positive for COVID-19: No Exposed to someone with COVID-19 in past 14 days?: No Do you have a sore throat?: No Do you have a cough?: No Do you have any weakness?: No Do you have any diarrhea?: No Are you experiencing any unusual bleeding?: No Do you have any muscle aches/pain?: No Do you have any abdominal pain?: No Are you experiencing loss of taste or smell?: No Other Medical History Have you received the Flu Vaccine for this season: No Have you received the Pneumonia Vaccine: Yes ROS Obtained: Yes All systems reviewed & no additional complaints except as documented Physical Exam General General appearance: alert and anxious Head Head exam: atraumatic and normocephalic Eye Eye exam: Present normal appearance, PERRL and EOMI Neck Neck exam: Present normal inspection, full ROM and trachea midline Respiratory Respiratory exam: Present normal lung sounds bilaterally; Absent respiratory distress, wheezes, stridor, accessory muscle use or prolonged expiratory phase Cardiovascular Cardiovascular exam: Present regular rate, normal rhythm, normal heart sounds and other (Pulses equal symmetric in upper and lower extremities) Abdominal Exam Abdominal exam: Present soft; Absent distention, tenderness or pulsatile mass Extremities Exam Extremities exam: Absent edema Neurological Exam Neurological exam: Present alert, oriented X3 and CN II-XII intact; Absent motor sensory deficit Skin Skin exam: Present warm and dry; Absent diaphoresis or erythema Medical Decision Making Medical Records Medical records reviewed: Yes I reviewed the patient's medical records. Screening: Per USPSTF and CDC recommendations, given the prevalence of disease in our region, it is our hospital?s policy to screen for HIV and viral Hepatitis for all patients aged 18 and over and those with ongoing risk factors. Ean Inquiry Pt receiving controlled substance: No Ean was queried for this patient: No Vital Signs: 12/23/24 21:10 12/23/24 21:18 12/23/24 21:30 Temperature 98.4 F Temperature Source Oral Pulse Rate 64 60 Pulse Rate [Right Radial] 69 Respiratory Rate 18 18 14 Blood Pressure 133/81 Blood Pressure [Right Arm] 152/93 H Blood Pressure Mean [Right Arm] 112 Blood Pressure Source [Right Arm] Automatic Cuff Blood Pressure Position [Right Arm] Sitting 02 Sat by Pulse Oximetry 97 98 97 Oxygen Delivery Method Room Air 12/23/24 21:45 Temperature Temperature Source Pulse Rate 60 Pulse Rate [Right Radial] Respiratory Rate 13 Blood Pressure Blood Pressure [Right Arm] Blood Pressure Mean [Right Arm] Blood Pressure Source [Right Arm] Blood Pressure Position [Right Arm] 02 Sat by Pulse Oximetry 96 Oxygen Delivery Method Lab Data Lab Results 12/23/24 21:06: WBC 10.5, RBC 4.86, Hgb 14.8, Hct 42.4, MCV 87.2, MCH 30.5, MCHC 34.9, RDW 11.2 L, Plt Count 255, MPV 10.4, Neut % (Auto) 64.3, Lymph % (Auto) 24.0, [place] % (Auto) 8.9, Eos % (Auto) 2.2, Baso % (Auto) 0.4, Neut # (Auto) 6.7, Lymph # (Auto) 2.5, [place] # (Auto) 0.9, Eos # (Auto) 0.2, Baso # (Auto) 0.0, PT 11.2, INR 1.00, APTT 27.9, Sodium 137, Potassium 4.2, Chloride 104, Carbon Dioxide 21 L, Anion Gap 16.2 H, BUN 12, Creatinine 0.80, Estimated Creat Clear 144, Estimated GFR 86, Est GFR ( Amer) 104, Glucose 91, Calcium 8.8, Total Bilirubin 1.2, AST 44 H, ALT 22, Alkaline Phosphatase 42, Troponin I < 0.01, Total Protein 8.1, Albumin 4.7, Globulin 3.4 H, Albumin/Globulin Ratio 1.4, Lipase 70, HCG, Quant < 2 12/23/24 21:06 12/23/24 21:06 Orders (Tests/Meds): ED MEDICATIONS Discontinued Medications Generic Name Dose Route Start Last Admin Trade Name Freq PRN Reason Stop Dose Admin Al Hydrox/Mg Hydrox/Simethicone 30 ml 12/23/24 21:38 12/23/24 21:44 Aluminum/Magnesium/Simethicone 30ml Udc PO 12/23/24 21:39 30 ml ONCE ONE Administration Ketorolac Tromethamine 15 mg 12/23/24 21:38 12/23/24 21:44 Ketorolac 30mg/Ml Vial IV 12/23/24 21:39 15 mg ONCE ONE Administration ORDERS Category Date Time Status XR chest portable Stat Exams 12/23/24 21:11 Taken Complete Blood Count Auto Diff Stat Lab 12/23/24 21:06 Completed Comprehensive Metabolic Panel Stat Lab 12/23/24 21:06 Completed HCG,Quantitative Stat Lab 12/23/24 21:06 Completed Lipase Stat Lab 12/23/24 21:06 Completed PT INR [Prothrombin Time INR] Stat Lab 12/23/24 21:06 Completed PTT [Activated Partial Thrombo Time] Stat Lab 12/23/24 21:06 Completed Troponin I Q3H Lab 12/24/24 00:15 Ordered Troponin I Q3H Lab 12/24/24 03:15 Ordered Troponin I Stat Lab 12/23/24 21:06 Completed Medical Decision Narrative: 29-year-old female presenting with chest pain, palpitations, shortness of breath. She states that she has a history of heart disease, does not know what the underlying diseases. States that she has history of open heart surgery secondary to abnormal heart valve when she was younger. States that she is now following with cardiology because she has an electrical problem, in her heart. Since yesterday, 12/22 around 1 PM, patient started having chest pain that is left-sided, radiates to her shoulder, associated with shortness of breath. Mild in intensity. Nothing makes it better or worse. No other associated symptoms on full review of systems. History was obtained via conversation with patient and family. On arrival, patient hemodynamically stable, alert, oriented x4, appropriate, GCS 15, moving all extremities spontaneously, pupils equal and reactive to light. Full physical exam performed and significant for anxious female no acute distress. Lungs are clear, cardiac exam without murmurs gallops or rubs. No lower extremity edema. Pulses equal and symmetric in bilateral extremities. Neurologically intact differential includes anxiety, peptic ulcer disease, gastritis, microvascular coronary artery disease, CHF, ACS, ME, coronary artery dissection, pneumothorax, PE, dissection, pericarditis, myocarditis, pneumothorax, aortic aneurysm, pneumonia, bronchitis, among others. Patient placed on continuous cardiac monitoring and continuous pulse ox with initial blood pressure 152/93, heart rate 69, saturation 97% on room air. Independent interpretation of EKG shows sinus rhythm with right bundle branch block and right axis deviation. CO interval 200, QRS 176, QTc 468. No acute ischemic change and this EKG is stable when compared to previous. Patient was given Toradol and Maalox for symptomatic management and correction of underlying abnormalities. Workup independently interpreted and significant for nonactionable CBC or chemistry. Lipase negative. hCG negative, troponin negative. On independent interpretation of imaging, acute cardiopulmonary space disease on chest x-ray, sternal wires intact. See radiology read for full review of final results. Heart score 2. Reevaluation, patient feeling better, but wants to know what the etiology of her discomfort was. Honestly, I am unsure. I feel it is incredibly unlikely that it is cardiac in etiology, but it was discussed that this cannot be totally ruled out today based on workup and given her history. It was recommended that she follow-up with her digital media representative outpatient. She voiced her understanding. Given patient presentation, workup, history, this most likely represents chest pain, idiopathic. I feel this is likely stress related versus musculoskeletal given duration and completely normal workup as well as normal physical exam. Because patient at baseline without signs or symptoms of clinical decompensation, deemed appropriate for discharge. Results were relayed to patient who voiced understanding and were agreeable to outpatient management and follow up. I discussed my clinical impression with patient and answered all questions. At this time, the evidence for any other entities in the differential is insufficient to warrant any further testing or ED observation. This was explained as well. Advisory was given that persistent or worsening symptoms require further evaluation. I confirmed the understanding of this discussion. Filtrose Crusher disclaimer Much of this encounter note is an electronic trekking guide spoken language to printed text. Electronic trekking guide of the spoken language may permit errors. Although I have reviewed the note, some errors may still exist. Critical Care Critical Care Time Critical Care Time: No
[2024-12-23] MEDS: KETOROLAC 30MG/ML VIAL 15 MG IV (21:44)
[2024-12-23] MEDS: ALUMINUM/MAGNESIUM/SIMETHICONE 30ML UDC 30 ML PO (21:44)
[2024-12-23 21:45] VITALS: PULSE 60; RESP 13; O2SAT 96
[2024-12-23 21:46] LABS: Troponin I < 0.01 ng/ml (0.00-0.034)
[2024-12-23 21:51] LABS: HCG,Quantitative < 2 mIU/ml (0-5.42)
[2024-12-23 22:26] VITALS: BP 137/92; PULSE 57; RESP 18; TEMP 36.9; O2SAT 97
== END 2024-12-23 22:31 | disposition home or self-care (01) ==
PROVIDERS: Emergency Provider Emergency Medicine
DX: R07.89 Other chest pain (principal)
CPT/HCPCS: 71045; 80053; 83690; 84484; 84702; 85025; 85610; 85730; 93005; 96374; 99284; J1885

== ENCOUNTER 2025-02-22 12:54 | Outpatient (CLI) | payer MEDICAID, SELFPAY | END 2025-02-22 23:59 | disposition home or self-care (01) | LOC: RT 12:55 | PROVIDERS: PCP Family Medicine Addiction Medicine; Visit Provider Internal Medicine Pulmonary Disease | DX: R06.09 Other forms of dyspnea (principal); F17.210 Nicotine dependence, cigarettes, uncomplicated; Z79.51 Long term (current) use of inhaled steroids | CPT/HCPCS: 94060; 94618; 94726; 94729 ==

== ENCOUNTER 2025-02-27 11:32 | Outpatient (CLI) | payer MEDICAID, SELFPAY ==
--- OUTSIDE RECORDS SUMMARY | 2025-02-27 11:34 | XMS_ITS | Patient Health Record ---
Author Organization [facility] [place] Address [address] [place] [address] Care Team Providers Care Drop Press Hand Name Role Phone KRISTOPHER ORTIZ Unavailable [phone] Allergies Allergen (clinical drug ingredient) Drug/Non Drug Allergy documented on EMR Reaction Allergy Type Onset Date Status penicillin (uncoded) Unknown Allergy Active Reason For Referral No Information Medications Medication SIG (Take, Route, Frequency, Duration) Notes Start Date End Date Status predniSONE 10 MG (21) 60 mg day 1, 50 da y 2 , 40 day 3 , 30 day 4, 20 day 5 , 10 mg day 6 Orally Once a day for 6 days undefined 08/09/2018 Active Ipratropium [place] 0.06 % 2 sprays in each nostril Nasally Three times a day for 30 day(s) undefined 07/26/2018 Active Flonase 50 MCG/ACT 1 spray in each nost ril Nasally Once a day for 30 day(s) undefined 07/26/2018 Active Benadryl Allergy 25 MG 1 tablet Orally o nce a day for 5 days 07/27/2018 Active Social History Tobacco Use: Social History Observation Description Date Details (start date - stop date) Current Smoker NA - NA Tobacco Use/Smoking Question Answer Notes Are you a current every day smoker Alcohol Screen (Audit-C) Question Answer Notes Did you have a drink containing alcohol in the p ast year? No Points 0 Interpretation Negative Tobacco use other than smoking: Question Answer Notes Are you an other tobacco user? Yes v ape Plan Of Treatment No Information Insurance Providers Payer Name Payer Address Payer Phone Subscriber Number Group Number Insured Name Patient Relationship to Insured Coverage Start Date Coverage End Date [facility] MEDICAID-R [place] [address] [address] [place] [address] [id number] NEISHA HAWLEY Self - patient is the insured Medical (General) History Medical History History ICD Code Heart disease strep throat Surgical History Surgery Date(Month/Year) open heart surgery 2010, age 15 2.17.17
[2025-03-03 22:08] LABS: D001-IgE D pteronyssinus <0.10 kU/L (Class 0); D002-IgE D farinae <0.10 kU/L (Class 0); E001-IgE Cat Dander <0.10 kU/L (Class 0); E005-IgE Dog Dander <0.10 kU/L (Class 0); E072-IgE Mouse Urine <0.10 kU/L (Class 0); G002-IgE Bermuda Grass <0.10 kU/L (Class 0); G006-IgE Timothy Grass <0.10 kU/L (Class 0); I006-IgE Cockroach, German <0.10 kU/L (Class 0); Immunoglobulin E, Total <2 IU/mL (6-495); M001-IgE Penicillium chrysogen <0.10 kU/L (Class 0); M002-IgE Cladosporium herbarum <0.10 kU/L (Class 0); M003-IgE Aspergillus fumigatus <0.10 kU/L (Class 0); M006-IgE Alternaria alternata <0.10 kU/L (Class 0); T001-IgE Maple/Box Elder <0.10 kU/L (Class 0); T003-IgE Common Silver Birch <0.10 kU/L (Class 0); T006-IgE Cedar, Mountain <0.10 kU/L (Class 0); T007-IgE Oak, White <0.10 kU/L (Class 0); T008-IgE Elm, American <0.10 kU/L (Class 0); T010-IgE Walnut <0.10 kU/L (Class 0); T011-IgE Maple Leaf Sycamore <0.10 kU/L (Class 0); T014-IgE Cottonwood <0.10 kU/L (Class 0); T015-IgE Ash, White <0.10 kU/L (Class 0); T022-IgE Pecan, Hickory <0.10 kU/L (Class 0); T070-IgE White Mulberry <0.10 kU/L (Class 0); W001-IgE Ragweed, Short <0.10 kU/L (Class 0); W011-IgE Thistle, Russian <0.10 kU/L (Class 0); W014-IgE Pigweed, Common <0.10 kU/L (Class 0); W018-IgE Sheep Sorrel <0.10 kU/L (Class 0)
== END 2025-02-27 23:59 | disposition home or self-care (01) ==
LOC: LAB 11:33
PROVIDERS: PCP Family Medicine Addiction Medicine; Visit Provider Internal Medicine Pulmonary Disease
DX: J30.9 Allergic rhinitis, unspecified (principal)
CPT/HCPCS: 36415; 82785; 86003

== ENCOUNTER 2025-07-09 18:25 | Outpatient (CLI) | payer MEDICAID, SELFPAY ==
[2025-07-09 20:06] LABS: Microscopic, Urine URINE MICROSCOPIC (MICROSCOPIC)
[2025-07-09 20:37] LABS: Bilirubin,Urine Negative (Negative); Color,Urine YELLOW (Yellow); Glucose,Urine (UA) Negative (Negative); Ketones,Urine Negative (Negative); Leukocyte Esterase,Urine Negative (Negative); PH,Urine 6.5 (5.0-8.5); Protein,Urine Negative (Negative); Specific Gravity, Urine 1.015 (1.005-1.030); Urobilinogen,Urine 1.0 EU/dl (0.2)
[2025-07-09 20:57] LABS: Bacteria,Urine Trace /lpf
[2025-07-09 23:32] LABS: Hepatitis C Ab Qual. W/ RFX NEGATIVE (Negative)
--- OUTSIDE RECORDS SUMMARY | 2025-07-10 12:12 | XMS_ITS | Patient Health Record ---
Author Organization [facility] [place] Address [address] [place] [address] Care Team Providers Care Medical Biller Name Role Phone KRISTOPHER ORTIZ Unavailable [phone] Allergies Allergen (clinical drug ingredient) Drug/Non Drug [...] 10 mg day 6 Orally Once a day; Duration: 6 days undefined 08/09/2018 Active Ipratropium [place] 0.06 % 2 sprays in each nostril Nasally Three times a day; Duration: 30 day(s) undefined 07/26/2018 Active Flonase 50 MCG/ACT 1 spray in each nost ril Nasally Once a day; Duration: 30 day(s) undefined 07/26/2018 Active Benadryl Allergy 25 MG 1 tablet Orally o nce a day; Duration: 5 days 07/27/2018 Active Social History Tobacco [...] Insured Coverage Start Date Coverage End Date [facility] MEDICAID-R [place] [address] [address] [place] [address] [id number] NEISHA HAWLEY Self - patient is the insured Medical (General) History Medical History History ICD Code Heart disease strep throat Surgical History Surgery Date(Month/Year) open heart surgery 2010, age 15 2.17.17
--- OUTSIDE RECORDS SUMMARY | 2025-07-10 12:12 | XMS_ITS | Clinical Summary ---
Author Organization Healthcare Address [address] [place] [address] Care Team Providers Care Registered Phlebotomist Part Time Name Role Phone Kathy Saha NASIR Primary Care Provider Allergies Active Allergy Reactions Criticality Noted Date Comments Penicillins Hives Medium 05/10/2025 Medications busPIRone (Buspar) 10 MG tablet Take 2 tablets by mouth 2 times a day. 5 Active Symbicort 160-4.5 MCG/ACT inhaler Inhale 2 puffs daily. 5 Active FLUoxetine (PROzac) 40 MG capsule Take 1 capsule by mouth daily. 5 Active furosemide (Lasix) 20 MG tablet Take 0.5 tablets by mouth daily. 4 Active metFORMIN (Glucophage) 500 MG tablet Take 1 tablet by mouth daily with breakfast. 5 Active propranolol (Inderal) 40 MG tablet Take 1 tablet by mouth daily. 5 Active fluticasone (Flonase) 50 MCG/ACT nasal spray Administer 2 sprays into each nostril daily. 5 Active ergocalciferol 1.25 MG (93363 UT) capsule Take 1 capsule by mouth 1 time per week. 5 Active cyclobenzaprine (Flexeril) 10 MG tablet Take 1 tablet by mouth as needed. 4 Active Encounters Date Type Department Care Team Description 07/01/2025 Telephone [facility] [place] [address] [place] [address] Jenny Hardin APRN 05/14/2025 Telephone [facility] [place] [address] [place] [address] Erica Robles 05/10/2025 3:00 PM EDT Office Visit [address] [phone] Cyrus Wayne MD Nonrheumatic pulmonary valve stenosis (Primary Dx); PFO (patent foramen ovale) 05/10/2025 Travel 05/07/2025 Telephone [facility] [address] [address] Erica Robles from Last 3 Months Social History Tobacco Use Types Packs/Day Years Used Date Smoking Tobacco: Every Day Cigarettes Smokeless Tobacco: Never AUDIT-C Answer Date Recorded Q1: How often do you have a drink containing alc ohol? Monthly or less 05/10/2025 Average Number of Drinks Not on file 025 Frequency of Binge Drinking Not on file 04/13 Comments No Sex and Gender Information Value Date Recorded Sex Assigned at Not on file Legal Sex Female 8:55 AM EDT Gender Identity Not on file Sexual Orientation Not on file Last Filed Vital Signs Vital Sign Reading Time Taken Comments Blood Pressure 112/71 05/10/2025 3:30 PM EDT Pulse 59 05/10/2025 3:30 PM EDT Temperature - - Respiratory Rate 20 05/10/2025 3:30 PM EDT Oxygen Saturation 95% 05/10/2025 3:30 PM EDT RA Inhaled Oxygen Concentration - - Weight 86.1 kg (189 lb 13.1 oz) 05/10/2025 3:30 PM EDT Height 175.3 cm (5' 9 ) 05/10/2025 3:30 PM EDT Body Mass Index 28.03 05/10/2025 3:30 PM EDT Plan of Treatment Health Maintenance Due Date Last Done Comments [facility]-Depression Screening 1997 [facility]-HIV Screening 1997 [facility]-Hepatitis C Screening 1997 [facility]-/Child/Adol SDOH Screenings 1997 [facility]-Varicella Vaccines (1 of 2 - 13+ 2-dose series) 2010 [facility]- SDOH Screenings 2015 [facility]-Adult SDOH Screenings 2015 [facility]-Hepatitis B Vaccines (1 of 3 - 19+ 3-dose series) 2016 [facility]-Pneumococcal Vaccine: Pediatrics (0 to 5 Years) and At-Risk Patients (6 to 49 Years) (1 of 2 - PCV) 2016 [facility]-Pap Smear 2018 HPV Vaccines (1 - 3-dose SCD M series) 2024 [id number] Vaccine (1 - season) 2025 [facility]-Influenza Vaccine (#1) 2025 [facility]-DTaP,Tdap,and Td Vaccine s (4 - Td or Tdap) 08/18/2031 08/18/2021, 07/30/2021, 05/11/2019 [facility]-Zoster Vaccines (1 of 2) 2047 [facility]-Hepatitis A Vaccines Aged Out 019, 11/03/2018 No longer eligible based on patient's age to complete this topic [facility]-Obesity Intervention Completed 05/10/2025 [facility]-HIB Vaccines Aged Out No longer e ligible based on patient's age to complete this topic [facility]-IPV Vaccines Aged Out No longer e ligible based on patient's age to complete this topic [facility]-Rotavirus Vaccines Aged Out No lo nger eligible based on patient's age to complete this topic Procedures Procedure Name Priority Date/Time Associated Diagnosis Comments ECG ADULT Routine 05/10/2025 3:49 PM EDT PFO (patent foramen ovale) from Last 3 Months Results * ECG Adult (Now - Performed in your clinic) (05/10/2025 3:49 PM EDT) EKG DIAGNOSIS CLASS Abnormal MUSE ECG Ventricular Rate 59 BPM MUSE ECG Atrial Rate 59 BPM MUSE ECG ND Interval 186 ms MUSE ECG QRSD Interval 164 ms MUSE ECG QT Interval 460 ms MUSE ECG QTC Interval 455 ms MUSE ECG P [place] 24 degrees MUSE ECG R [place] 92 degrees MUSE ECG T Wave [place] 64 degrees MUSE ECG Diagnosis Poor data quality, interpretation may be adversely affected MUSE ECG Diagnosis Sinus bradycardia with sinus arrhythmia MUSE ECG Diagnosis Right bundle branch block MUSE ECG Diagnosis Abnormal ECG MUSE ECG Diagnosis MUSE ECG Diagnosis Confirmed by Clif Carias ([id number]) on 05/10/2025 4:06:34 PM MUSE ECG 05/10/2025 3:49 PM EDT 05/10/2025 4:06 PM EDT us Cyrus Wayne MD ECG ORDERABLES Final Resu lt MUSE ECG from Last 3 Months Insurance [facility] MEDICAID Care Teams Registered Phlebotomist Part Time Relationship Specialty Start Date End Date Kathy Saha APRN [address] [place] [address] PCP - General 05/10/25
--- OUTSIDE RECORDS SUMMARY | 2025-07-10 12:12 | XMS_ITS | Encounter Summary ---
Author Organization Healthcare Address [address] [place] [address] Care Team Providers Care Felt Hat Flanging Operator Name Role Phone Kathy Saha APRN Primary Care Provider Encounter Details Date Type Department Care Team (Late st Contact Info) Description 06/12/2024 Orders Only External Location [address] [place] [address] Provider, External Social History Tobacco Use Types Packs/Day Years Used Date Smoking Tobacco: Never Assessed Comments Unknown Sex and Gender Information Value Date Recorded Sex Assigned at Not on file Legal Sex Female 8:55 AM EDT Gender Identity Not on file Sexual Orientation Not on file documented as of this encounter Plan of Treatment Not on file documented as of this encounter Procedures Procedure Name Priority Date/Time Associated Diagnosis Comments MR ABDOMEN OUTSIDE IMAGES 06/12/2024 10:35 AM EDT documented in this encounter Results * MR ABDOMEN OUTSIDE IMAGES (06/12/2024 10:35 AM EDT) Anatomical Region Laterality Modality Magnetic Resonan ce 06/12/2024 10:3 5 AM EDT us External Provider IMG MRI PROCEDURES Edited Resu lt - Final documented in this encounter Visit Diagnoses Not on filedocumented in this encounter Care Teams Felt Hat Flanging Operator Relationship Specialty Start Date End Date Kathy Saha APRN [address] [place] [id number] PCP - General 05/10/25 documented as of this encounter
--- OUTSIDE RECORDS SUMMARY | 2025-07-10 12:12 | XMS_ITS | Encounter Summary ---
Author Organization Healthcare Address [address] [place] [address] Care Team Providers Care Swing Ride Operator Name Role Phone Kathy Saha NASIR Primary Care Provider Reason for Referral * Consultation (Routine) - Authorized Specialty Diagnoses / Procedures Referred By Lisa bruno Referred To Contact Diagnoses Nonrheumatic pulmonary valve insufficiency Jenny Hardin APRN [address] [place] [address] Phone: tel: fax: Referral ID Status Reason Start Date Expiration Date V isits Requested Visits Authorized [id number] Authorized 07/01/2025 12/31/2026 1 1 * Imaging (Routine) - Pending Review Specialty Diagnoses / Procedures Referred By Lisa bruno Referred To Contact Cardiology Diagnoses Nonrheumatic pulmonary valve insufficiency Procedures Echo, Adult Congenital Transthoracic (TTE) Complete Jenny Hardin APRN [address] [place] [address] Phone: tel: fax: Referral ID Status Reason Start Date Expiration Date Visits Requested Visits Authorized [id number] Pending Review Perform Procedure 12/31/2026 1 1 Encounter Details Date Type Department Care Team (Late st Contact Info) Description 07/01/2025 Telephone [facility] [place] [address] [place] [phone] Jenny Hardin APRN [address] [place] [address] Social History Tobacco Use Types Packs/Day Years [...] on file documented as of this encounter Miscellaneous Notes * Telephone Encounter - Jenny Hardin APRN - 07/01/2025 2:54 PM EDT I called the patient to inform her that we were able to get the TTE and JENNIFER images from [facility] (Dr. Beckman) and the images were reviewed by Dr. Wayne demonstrating moderate regurgitation of pulmonary valve. No need for repeat echo or clinic appt this week as previously planned. Willseen pt in clinic in April of 2026 with TTE and EKG same day. The patient was agreeable to the plan and verbalized understanding. documented in this encounter Plan of Treatment Scheduled Orders Name Type Priority Associated Diagnoses Orde r Schedule Echo, Adult Congenital Transthoracic (TTE) Complete Congenital Echo Routine Nonrheumatic pulmonary valve insufficiency Expected: 05/09/2026 (Approximate), Expires: 01/02/2027 Scheduled Referrals Name Type Priority Associated Diagnoses Orde r Schedule Follow Up Cardiology Outpatient Referral Routine Nonrheumatic pulmonary valve insufficiency Expected: 05/09/2026 (Approximate), Expires: 12/30/2026 documented as of this encounter Visit Diagnoses Diagnosis Nonrheumatic pulmonary valve insufficiency- Primary documented in this encounter Additional Health Concerns Assessment Noted Time A Body Mass Index follow-up plan has been documented for the patient 05/10/2025 4:15 PM EDT documented as of this encounter Care Teams Swing Ride Operator Relationship Specialty Start Date End Date Kathy Saha APRN [address] [place] [address] PCP - General 05/10/25 documented as of this encounter
--- OUTSIDE RECORDS SUMMARY | 2025-07-10 12:12 | XMS_ITS | Encounter Summary ---
Author Organization Healthcare Address [address] [place] [address] Care Team Providers Care Superintendent Custodian Janitor Name Role Phone Kathy Saha APRN Primary Care Provider Encounter Details Date Type Department Care Team (Late st Contact Info) Description 05/14/2025 Telephone [facility] [place] [address] [place] [address] [place] [address] Social History Tobacco Use Types Packs/Day Years [...] encounter Miscellaneous Notes * Telephone Encounter - Erica Robles - 05/14/2025 10:49 AM EDT Patient Name:Mi Aguilera : 1995 Date:05/14/2025 Affiliate Site: [facility] Referring Physician: Dr. Rk Marquez/ Seen: Cardiology/Tone Future scheduling/testing needs: Echo and f/u appt scheduled 07/05/2025 This [facility] Nurse Liaison left message for Mi Aguilera following their appointment on 05/10/2025. Liaison contact information provided. Will follow up in 3 months to ensure continuum of care. Erica Robles [facility] Nurse Liaison [phone] documented in this encounter Plan of Treatment Not on file documented as of this encounter Visit Diagnoses Not on filedocumented in this encounter Additional Health Concerns Assessment Noted Time A Body Mass Index follow-up plan has been documented for the patient 05/10/2025 4:15 PM EDT documented as of this encounter Care Teams Superintendent Custodian Janitor Relationship Specialty Start Date End Date Kathy Saha APRN [address] [place] [id number] PCP - General 05/10/25 documented as of this encounter
[2025-07-10 14:59] LABS: RPR W/RFX Titers Nonreactive (Nonreactive)
[2025-07-11 09:13] LABS: Hepatitis B Surface Antigen Negative (Negative)
== END 2025-07-09 23:59 | disposition home or self-care (01) ==
LOC: LAB.DROPOF 07-10 12:10
PROVIDERS: PCP Student in an Organized Health Care Education/Training Program; Visit Provider Student in an Organized Health Care Education/Training Program
DX: R30.0 Dysuria (principal); Z11.59 Encounter for screening for other viral diseases
CPT/HCPCS: 81001; 86592; 86803; 87389; 87491; 87529; 87563; 87591; 87661